=== PATIENT | female | born 1975 | race Caucasian/White ===

== ENCOUNTER 2016-12-02 02:47 | Emergency (ER) | payer OTHER ==
[2016-12-02 06:51] VITALS: BP 115/75; PULSE 95; RESP 18; TEMP 98.1; O2SAT 98
--- NOTE | 2016-12-02 08:33 | CT ---
PROCEDURE: CT Abdomen and Pelvis with contrast HISTORY: ABDOMINAL PAIN COMPARISON: None. TECHNIQUE: Contrast dose: 100 mL Visipaque 320 Radiation dose: Total exam DLP = 427.49 mGy-cm. This CT exam was performed using one or more of the following dose reduction techniques: Automated exposure control, adjustment of the mA and/or kV according to patient size, and/or use of iterative reconstruction technique. FINDINGS: LOWER THORAX: Unremarkable. LIVER: Unremarkable. No gross lesion or ductal dilatation. GALLBLADDER AND BILE DUCTS: Unremarkable. PANCREAS: Unremarkable. No gross lesion or ductal dilatation. SPLEEN: Unremarkable. ADRENALS: Unremarkable. No mass. KIDNEYS AND URETERS: Unremarkable. No hydronephrosis. No solid mass. VASCULATURE: Unremarkable. No aortic aneurysm. BOWEL: Several loops of jejunum with circumferential mural thickening, consistent with nonspecific enteritis. No bowel obstruction. No other abnormal bowel loops. APPENDIX: Not identified. No secondary findings to suggest acute appendicitis. PERITONEUM: Unremarkable. No free fluid. No free air. LYMPH NODES: Unremarkable. No enlarged lymph nodes. BLADDER: Unremarkable. REPRODUCTIVE: Normal uterus. Peripherally enhancing granulated left ovarian cysts, 2.3 cm diameter, likely representing ruptured or involuting follicle. BONES: No acute fracture. OTHER FINDINGS: None. IMPRESSION: Findings consistent with nonspecific enteritis. Multiple loops of proximal jejunum with circumferential mural thickening. Involuting or ruptured left ovarian follicle. No additional abnormality. Preliminary interpretation of this examination was reported by [employer] at 6:19 a.m. on 12/02/2016. There is concurrence of this report with the preliminary interpretation.
[2016-12-02 08:45] LABS: ALB/GLOB RATIO 1.2 (1.0-2.1); ALT/SGPT 45 U/L (9-52); AST/SGOT 30 U/L (14-36); BILIRUBIN,TOTAL 0.7 mg/dL (0.2-1.3); BLOOD UREA NITROGEN 10 mg/dL (7-17); CALCIUM 9.2 mg/dl (8.6-10.4); CARBON DIOXIDE 22 mmol/L (22-30); CHLORIDE 97 mmol/L (98-107); GFR AFRICAN-AMERICAN > 60; GLUCOSE,RANDOM 163 mg/dL (65-105); POTASSIUM 3.9 mmol/L (3.6-5.2); SODIUM 137 mmol/L (132-148); TOTAL PROTEIN 8.1 g/dL (6.3-8.3)
[2016-12-02 08:46] LABS: ALKALINE PHOSPHATASE 89 U/L (38-126)
[2016-12-02 08:51] LABS: URINE COLOR YELLOW (YELLOW); URINE GLUCOSE (UA) NEGATIVE (Normal)
[2016-12-02 08:52] LABS: PH,URINE 1.015 (5.0-8.0); URINE BILIRUBIN NEGATIVE (NEGATIVE); URINE BLOOD NEGATIVE (NEGATIVE); URINE KETONE NEGATIVE (NEGATIVE); URINE PROTEIN NEGATIVE (NEGATIVE); URINE UROBILINOGEN 0.2 mg/dL (0.2-1.0)
[2016-12-02 08:53] LABS: RBC URINE 1 /hpf (0-3); URINE LEUKOCYTE ESTERASE NEGATIVE Leu/uL (Negative)
[2016-12-02 08:54] LABS: URINE BACTERIA RARE (<OCC)
[2016-12-02 08:55] LABS: URINE HYALINE CAST 0-2 /lpf (0-2); WBC URINE 1 /hpf (0-5)
[2016-12-02 08:57] LABS: HEMATOCRIT 38.8 % (34.0-47.0); MEAN CELL VOLUME 77.7 fL (81.0-99.0); MEAN CORPUSCULAR HEMOGLOBIN 26.3 pg (27.0-31.0); MEAN CORPUSCULAR HGB CONC 33.9 g/dL (33.0-37.0); WHITE BLOOD COUNT 9.4 K/uL (4.8-10.8)
[2016-12-02 08:58] LABS: BASO % 0.4 % (0.0-2.0); EOS % 0.4 % (0.0-4.0); LYMPH # 0.5 K/uL (1.0-4.3); MEAN PLATELET VOLUME 8.2 fL (7.2-11.7); MONO # 0.7 K/uL (0.0-0.8); MONO % 7.9 % (0.0-10.0); PLATELET COUNT 219 K/uL (130-400); RED CELL DISTRIBUTION WIDTH 13.7 % (11.5-14.5)
[2016-12-02 09:05] LABS: NEUTROPHIL 65 % (50-75); TOTAL CELLS COUNTED 100
[2016-12-02 09:06] LABS: LARGE PLATELETS PRESENT
--- NOTE | 2016-12-02 18:42 | C.PDOC ---
ED Additional Note - Physician Additional Note Physician Additional Note: patient seen last night during downtime. Today lab called with critical value of elevated bands. I spoke with the patient , she states she was c/o NVD, but was getting better, no fevers. Patient was advised to return to the ED immediately if she gets worst.
== END 2016-12-02 06:35 | disposition home or self-care (01) ==
LOC: C.ER 02:47
DX: N83.299 Other ovarian cyst, unspecified side (principal); N83.292 Other ovarian cyst, left side
CPT/HCPCS: 74177; 80053; 81001; 83690; 84703; 85025; 96374; 96375; 99281; J2405; J7040; Q9967